=== PATIENT | male | born 1955 | race Caucasian/White ===

== ENCOUNTER 2016-12-17 17:18 | Emergency (ER) | payer SELFPAY ==
[~2016-12-17] VITALS: Ht 170.2 cm; Wt 95.0 kg
[~2016-12-17 17:18] MED LIST: CLEOCIN150 MG PO; CLINDAMYCIN HC150 MG PO; CLOTRIM ANTIFUN15 GM TP; COLACE100 MG PO; ENDOCET 5-3251 EACH PO; KEFLEX500 MG PO
[2016-12-17 19:44] LABS: INFLUENZA A VIRAL ANTIGEN NEGATIVE; INFLUENZA B VIRAL ANTIGEN NEGATIVE
[2016-12-17] MEDS ORDERED: LEVAQUIN750 MG PO (21:49)
[2016-12-18 00:11] VITALS: BP 141/79
== END 2016-12-18 00:12 | disposition home or self-care (01) ==
LOC: EXP 17:18 → EME 17:18 → EXP 12-18 00:12
PROVIDERS: Nurse Practitioner Family
DX: J18.9 Pneumonia, unspecified organism (principal)
CPT/HCPCS: 71020; 87040; 87502; 87651 90; 99281; 99284

== ENCOUNTER 2017-06-24 13:09 | Inpatient (IN) | payer OTHER ==
[~2017-06-24] VITALS: Ht 170.2 cm; Wt 100.5 kg
[~2017-06-24 13:09] MED LIST changes: +LEVAQUIN750 MG PO
[2017-06-24 14:06] LABS: MCH 28.1 PG (29.0-34.0); MCHC 34.2 G/DL (30.0-36.0); MCV 82.2 FL (86-99); MEAN PLAT.VOLUME 10.3 uM^3 (9.0-12.4); PLATELET COUNT 234 K/uL (156-360); RBC DIS.WIDTH-CV 12.6 % (11.8-14.6); RBC DIS.WIDTH-SD 37.6 % (39-53); RED BLOOD COUNT 5.23 M/uL (4.00-5.50); WHITE BLOOD COUNT 12.8 K/uL (4.1-10.2)
[2017-06-24 14:21] LABS: CHLORIDE 103 mEq/L (99-109); POTASSIUM 3.8 mEq/L (3.7-5.4); SODIUM 139 mEq/L (136-147)
[2017-06-24 14:23] LABS: GLUCOSE 101 mg/dL (70-99)
[2017-06-24 14:24] LABS: ANION GAP 12 MEQ/L (2-14)
[2017-06-24 14:25] LABS: TOTAL BILIRUBIN 0.8 mg/dL (0.0-1.0)
[2017-06-24 14:26] LABS: ALKALINE PHOSPHATASE 77 IU/L (3-129)
[2017-06-24 14:27] LABS: GFR ESTIMATE (CALCULATED) > 59 mL/min/
[2017-06-24 14:28] LABS: UREA NITROGEN (BUN) 12 mg/dL (9-23)
[2017-06-24 14:30] LABS: LIPASE 88 U/L (1.0-51.0)
[2017-06-24 14:33] LABS: TROP-I INTERPRETATION NEGATIVE; TROPONIN-I < 0.01 ng/mL (0.0-0.30)
[2017-06-24 17:36] LABS: ADD MIUA? NO; BILIRUBIN NEGATIVE; BLOOD NEGATIVE; COLOR YELLOW ((YELLOW)); GLUCOSE (STRIP) NEGATIVE; KETONES NEGATIVE; LEUKOCYTES NEGATIVE; NITRITE NEGATIVE; PROTEIN (STRIP) NEGATIVE; SPECIFIC GRAVITY 1.018 (1.000-1.030); UROBILINOGEN 0.2 MG/DL (0.2-1.0)
[2017-06-24] MEDS ORDERED: PROAIR RESPICL90 MCG IH (19:15)
[2017-06-24] MEDS ORDERED: CLEOCIN300 MG PO (19:15)
[2017-06-24] MEDS ORDERED: CLEOCIN150 MG PO (19:15)
[2017-06-25] VITALS (7 sets, daily range): BP systolic 96–119; BP diastolic 55–66
[2017-06-25 00:57] LABS: INTER. NORMALIZED RATIO 1.3; PROTHROMBIN TIME 14.7 SEC (10.2-12.9)
[2017-06-25 01:00] LABS: PTT 29.3 SEC (25-37)
[2017-06-25 04:34] LABS: EOSINOPHIL (%) 0 % (0-5); HEMATOCRIT 36.9 % (38.0-50.0); IMMATURE GRANULOCYTE (%) 0.8 % (0.0-0.7); IMMATURE GRANULOCYTE COUNT 0.1 K/uL; INSTRUMENT ABS NEUTROPHIL CT 11.4 K/uL; LYMPHOCYTE COUNT 0.3 K/uL (1.0-2.8); MCH 28.5 PG (29.0-34.0); MCHC 34.4 G/DL (30.0-36.0); MCV 82.7 FL (86-99); MEAN PLAT.VOLUME 10.4 uM^3 (9.0-12.4); MONOCYTE (%) 0.5 % (3-12); MONOCYTE COUNT 0.1 K/uL (0-0.8); NEUTROPHIL (%) 96.1 % (45-76); NEUTROPHIL COUNT 11.4 K/uL (1.8-6.4); PLATELET COUNT 197 K/uL (156-360); RBC DIS.WIDTH-CV 12.8 % (11.8-14.6); RBC DIS.WIDTH-SD 38.7 % (39-53); RED BLOOD COUNT 4.46 M/uL (4.00-5.50); WHITE BLOOD COUNT 11.9 K/uL (4.1-10.2)
[2017-06-25 04:36] LABS: CHLORIDE 106 mEq/L (99-109); POTASSIUM 3.7 mEq/L (3.7-5.4); SODIUM 136 mEq/L (136-147)
[2017-06-25 04:38] LABS: GLUCOSE 170 mg/dL (70-99)
[2017-06-25 04:39] LABS: ANION GAP 7 MEQ/L (2-14)
[2017-06-25 04:41] LABS: ALKALINE PHOSPHATASE 61 IU/L (3-129)
[2017-06-25 04:42] LABS: GFR ESTIMATE (CALCULATED) > 59 mL/min/; TOTAL BILIRUBIN 0.5 mg/dL (0.0-1.0)
[2017-06-25 04:43] LABS: UREA NITROGEN (BUN) 12 mg/dL (9-23)
[2017-06-25 04:45] LABS: LIPASE 28 U/L (1.0-51.0)
[2017-06-25 05:00] LABS: ERTH.SED.RATE 20 MM/HR (0-20)
[2017-06-25 07:32] LABS: INTERNAL CONTROL VALID? YES
[2017-06-26 04:09] VITALS: BP 115/72
[2017-06-26 06:39] LABS: HEMATOCRIT 34.5 % (38.0-50.0); MCH 28.3 PG (29.0-34.0); MCHC 33.3 G/DL (30.0-36.0); MCV 84.8 FL (86-99); MEAN PLAT.VOLUME 10.7 uM^3 (9.0-12.4); PLATELET COUNT 207 K/uL (156-360); RBC DIS.WIDTH-CV 13.4 % (11.8-14.6); RED BLOOD COUNT 4.07 M/uL (4.00-5.50); WHITE BLOOD COUNT 11.4 K/uL (4.1-10.2)
[2017-06-26 08:33] VITALS: BP 125/71
[2017-06-26 12:09] VITALS: BP 139/83
[2017-06-26 16:30] VITALS: BP 161/81
[2017-06-26 20:27] VITALS: BP 166/83
[2017-06-26 23:30] VITALS: BP 127/78
[2017-06-27 05:20] VITALS: BP 133/84
[2017-06-27 08:18] VITALS: BP 155/91
[2017-06-27 09:16] LABS: HEMATOCRIT 36.7 % (38.0-50.0); MCH 28.9 PG (29.0-34.0); MCHC 34.1 G/DL (30.0-36.0); MCV 84.8 FL (86-99); MEAN PLAT.VOLUME 10.3 uM^3 (9.0-12.4); PLATELET COUNT 228 K/uL (156-360); RBC DIS.WIDTH-CV 13.3 % (11.8-14.6); RBC DIS.WIDTH-SD 41.4 % (39-53); RED BLOOD COUNT 4.33 M/uL (4.00-5.50)
[2017-06-27 10:19] LABS: ANION GAP 11 MEQ/L (2-14); CHLORIDE 106 MEQ/L (99-109); GFR ESTIMATE (CALCULATED) > 59 mL/min/; GLUCOSE 133 mg/dL (70-99); POTASSIUM 3.8 MEQ/L (3.7-5.4); SAMPLE HEMOLYSIS CHECK 0; SAMPLE ICTERIC CHECK 0; SAMPLE LIPEMIA CHECK 0; SODIUM 141 MEQ/L (136-147); UREA NITROGEN (BUN) 14 mg/dL (9-23)
[2017-06-27 11:43] VITALS: BP 151/86
[2017-06-27 16:51] VITALS: BP 133/83
[2017-06-27 19:56] VITALS: BP 129/70
[2017-06-27 23:41] VITALS: BP 138/83
[2017-06-28 03:49] VITALS: BP 164/95
[2017-06-28 08:41] VITALS: BP 146/92
[2017-06-28 11:41] VITALS: BP 145/89
[2017-06-28 14:59] LABS: Estimated Average Glucose 114 mg/dL (70-123); HEMOGLOBIN A1c (GLYCOHEMOGLOB) 5.6 % HGB (Below 5.7)
[2017-06-28 16:21] VITALS: BP 138/86
[2017-06-28 19:23] VITALS: BP 160/89
[2017-06-28 23:43] VITALS: BP 127/81
[2017-06-29 08:04] VITALS: BP 153/88
[2017-06-29] MEDS ORDERED: LEVAQUIN750 MG PO (09:23)
[2017-06-29] MEDS ORDERED: KEFLEX500 MG PO (09:23)
[2017-06-29 11:14] LABS: HIV INDEX 0.23; HIV-1/2 AB/AG COMBO Nonreactive
[2017-06-29 11:25] VITALS: BP 140/84
== END 2017-06-29 11:58 | disposition home or self-care (01) | DRG 871 ==
LOC: EME 13:09 → EDOF 23:23 → ENRESERV 23:23 → 3EAST 23:23 → ENRESERV 23:44 → 3EAST 06-25 01:04
PROVIDERS: Internal Medicine; Nurse Practitioner Family; Physician Assistant; Physician Assistant Medical
DX: A41.9 Sepsis, unspecified organism (principal); J18.9 Pneumonia, unspecified organism; N17.9 Acute kidney failure, unspecified; I95.9 Hypotension, unspecified; L03.116 Cellulitis of left lower limb; R09.02 Hypoxemia; H53.8 Other visual disturbances; M25.511 Pain in right shoulder; R11.2 Nausea with vomiting, unspecified; R21 Rash and other nonspecific skin eruption; R42 Dizziness and giddiness; R51 Headache; R55 Syncope and collapse; R74.8 Abnormal levels of other serum enzymes; Z87.891 Personal history of nicotine dependence
CPT/HCPCS: 70450; 71020; 71275; 80048; 80053; 81003; 82040; 82803; 83036; 83605; 83690; 84484; 85025; 85027; 85610; 85651; 85730; 86703; 87040; 87070; 87205; 87449; 93005; 93971; 94640; 94640 76; 94760; 94799; 99202; 99281; 99285; J0456; J0696; J1650; J2405; J2930; J7030; J7050; J7120; J7512

== ENCOUNTER 2017-08-24 16:48 | Emergency (ER) | payer OTHER ==
[~2017-08-24] VITALS: Ht 170.2 cm; Wt 95.3 kg
[~2017-08-24 16:48] MED LIST changes: +CLEOCIN300 MG PO; +PROAIR RESPICL90 MCG IH
[2017-08-24 18:17] LABS: HEMATOCRIT 41.5 % (38.0-50.0); MCH 28.2 PG (29.0-34.0); MCHC 34.7 G/DL (30.0-36.0); MCV 81.4 FL (86-99); MEAN PLAT.VOLUME 10.2 uM^3 (9.0-12.4); PLATELET COUNT 246 K/uL (156-360); RBC DIS.WIDTH-CV 12.4 % (11.8-14.6); RBC DIS.WIDTH-SD 36.8 % (39-53); WHITE BLOOD COUNT 5.9 K/uL (4.1-10.2)
[2017-08-24] MEDS ORDERED: KEFLEX500 MG PO (18:20)
[2017-08-24] MEDS ORDERED: ATHLETIC FOOT C30 GM TP (18:20)
[2017-08-24 18:28] LABS: CHLORIDE 111 mEq/L (99-109); POTASSIUM 3.9 mEq/L (3.7-5.4); SODIUM 142 mEq/L (136-147)
[2017-08-24 18:30] LABS: GLUCOSE 91 mg/dL (70-99)
[2017-08-24 18:31] LABS: ANION GAP 9 MEQ/L (2-14)
[2017-08-24 18:32] LABS: TOTAL BILIRUBIN 0.4 mg/dL (0.0-1.0)
[2017-08-24 18:33] LABS: ALKALINE PHOSPHATASE 62 IU/L (3-129)
[2017-08-24 18:34] LABS: GFR ESTIMATE (CALCULATED) > 59 mL/min/
[2017-08-24 18:35] LABS: UREA NITROGEN (BUN) 10 mg/dL (9-23)
[2017-08-24 18:52] VITALS: BP 145/95
[2017-08-25 10:12] LABS: TREPONEMA ANTIBODY NEGATIVE (NEGATIVE)
== END 2017-08-24 19:08 | disposition home or self-care (01) ==
LOC: EME 16:48
PROVIDERS: Physician Assistant
DX: L53.9 Erythematous condition, unspecified (principal); R21 Rash and other nonspecific skin eruption
CPT/HCPCS: 80053; 85027; 86780; 99281; 99284